=== PATIENT | female | born 1965 | race Caucasian/White ===

== ENCOUNTER 2016-12-03 06:15 | Day surgery (SDC) | payer OTHER ==
[2016-12-03] MEDS ORDERED: LIDOCAINE 1% 2 ML VIAL ID PRN (06:22)
[2016-12-03] MEDS ORDERED: LACTATED RINGERS 1,000 ML IV SCH (06:22)
[2016-12-03] MEDS ORDERED: ONDANSETRON 4 MG/2ML 2 ML VIAL IV PRN (06:22)
[2016-12-03] MEDS ORDERED: IV START KIT ONE (06:36)
[2016-12-03] MEDS ORDERED: PROPOFOL 40 ML IV ONE (06:45)
[2016-12-03] MEDS ORDERED: LIDOCAINE 2% (PRES FREE) 5 ML VIAL ONE (06:46)
[2016-12-03] MEDS ORDERED: FENTANYL 100 MCG/2 ML VIAL ONE (08:16)
[2016-12-03] MEDS ORDERED: FENTANYL 100 MCG/2 ML VIAL IV ONE (08:22)
[2016-12-03] MEDS ORDERED: PROPOFOL 20 ML IV ONE (09:24)
--- NOTE | 2016-12-08 09:54 | SURGPATH ---
[facility] [address] [place] [id number] Patient Name: JOSELYN WEINSTEIN MR#: [id number] : 1965 Gender: F Specimen #: [id number] Collected: 12/01/2016 Received: 12/04/2016 Reported: 12/08/2016 Submitting Phys: JONAH REDD Copy To Phys: YURIY SOSA [facility] Clinical History / Pre-Operative Diagnosis: SCREENING COLONOSCOPY Specimen Source / Surgical Procedure Performed: RECTAL POLYP AT 20 CM Interpretation: RECTAL POLYP AT 20 CM, POLYPECTOMY: - TUBULAR ADENOMA Electronically Signed Out Simon Mckeon M.D. Gross Description: The specimen is received in a formalin filled container labeled with the patient's name and "rectal polyp at 20 cm". Two polypoid guillen biopsies are 0.4 x 0.3 x 0.2 cm and 0.5 x 0.4 x 0.3 cm. Totally embedded in one cassette. Brock Frost, PRichelleARichelle Microscopic Description: The sections show colonic mucosa exhibiting adenomatous change with a tubular architectural pattern. The changes are characterized by nuclear stratification and hyperchromasia with increased mitotic activity. High-grade dysplasia is not identified. 1: 90839 D12.8
== END 2016-12-03 11:03 | disposition home or self-care (01) ==
LOC: SDC 06:15
PROVIDERS: ATTEND Surgery
PROC: 0DBE8ZX Excision of Large Intestine, Via Natural or Artificial Opening Endoscopic, Diagnostic (ICD-10-PCS; principal; 2016-12-03)
DX: Z12.11 Encounter for screening for malignant neoplasm of colon (principal); D12.6 Benign neoplasm of colon, unspecified; K64.4 Residual hemorrhoidal skin tags; M54.9 Dorsalgia, unspecified; G43.909 Migraine, unspecified, not intractable, without status migrainosus; Z88.6 Allergy status to analgesic agent
CPT/HCPCS: 45385; J3010; J7120